=== PATIENT | male | born 1965 | race Caucasian/White ===

== ENCOUNTER 2020-11-03 21:06 | Emergency (ER) | payer OTHER ==
[~2020-11-03] VITALS: Ht 185.4 cm; Wt 108.9 kg
[2020-11-03 21:29] VITALS: Ht 185.4 cm; Wt 108.9 kg
[2020-11-03 22:41] VITALS: BP 123/74
== END 2020-11-03 22:41 | disposition home or self-care (01) ==
LOC: ED 21:06
DX: S61.214A Laceration without foreign body of right ring finger without damage to nail, initial encounter (principal); I10 Essential (primary) hypertension; W26.0XXA Contact with knife, initial encounter; Y93.89 Activity, other specified; Y92.89 Other specified places as the place of occurrence of the external cause; Y99.8 Other external cause status
CPT/HCPCS: 90715; J2001